=== PATIENT | female | born 1990 | race Two or more races ===

== ENCOUNTER 2023-11-07 06:43 | Outpatient (REF) | payer OTHER, SELFPAY ==
--- NOTE | ~2023-11-07 | US_ITS ---
EXAMINATION: US PELVIS CLINICAL INFORMATION: Fibroid. Pain COMPARISON: None available. TECHNIQUE: Ultrasound of the pelvis is performed using both transabdominal and transvaginal transducers along with Doppler. Transvaginal imaging is performed due to inadequate visualization transabdominally. FINDINGS: Uterus: The uterus is anteverted and measures 7.0 x 4.2 x 4.5 cm. The double wall endometrial thickness is 10 mm. The uterus is smooth in contour and has normal myometrial echogenicity. There is one small posterior well defined hypoechoic structure at 12 x 12 x 12 mm which has the appearance of a small fibroid. Adnexa: Both ovaries are visualized. There is normal color flow to the adnexa. There is no ovarian torsion. There is no pelvic ascites or fluid collection. Right ovary measures 3.0 x 3.6 x 3.1 cm. Small peripheral follicles are seen in the right ovary. Left ovary measures 2.4 x 2.7 x 2.6 cm. US/US pelvic and transvaginal IMPRESSION: Small posterior fibroid. Electronically signed by: Go Garcia MD 11/07/2023 02:18 PM EDT
== END 2023-11-07 06:44 | disposition home or self-care (01) ==
LOC: HO.UMASIMG 06:43
PROVIDERS: Visit Provider Family Medicine
DX: D25.9 Leiomyoma of uterus, unspecified (principal)
CPT/HCPCS: 76830; 76856

== ENCOUNTER 2024-07-30 06:27 | Outpatient (REF) | payer OTHER, SELFPAY ==
--- NOTE | ~2024-07-30 | US_ITS ---
CLINICAL HISTORY: LOCALIZED SWELLING US Neck Comparison: None Findings: Targeted ultrasound imaging of the left posterolateral neck in the region of palpable concern demonstrates a normal-sized 0.9 x 0.2 x 0.7 cm lymph node. 0.5 x 0.5 x 0.2 cm normal-sized right posterolateral neck lymph node is also noted. Impression: Normal-sized subcentimeter bilateral posterolateral neck lymph nodes. This document has been electronically signed by: Uri Torres on 07/31/2024 08:09:01
--- OUTSIDE RECORDS SUMMARY | 2024-07-30 06:30 | XMS_ITS | Clinical Summary ---
Author Organization [facility] Address [address] [place] [address] Care Team Providers Care Spring Clipper Name Role Phone Sepideh Silverman MD Primary Care Provider [phone] Allergies No known active allergies Medications Cyanocobalamin (Vitamin B 12) 100 MCG Lozenge Acti ve cholecalciferol (CHOLECALCIFEROL ) 25 MCG (1000 UT) tablet Take 1 tablet (1,000 Units total) by mouth. 01/03/2020 Active Multiple Vitamins-Mineral s (Multi-Vitamin Gummies) Chew Tab Active Active Problems No known active problems Social History Tobacco Use Types Packs/Day Years Used Date Smoking Tobacco: Never Cigarettes Smokeless Tobacco: Never Tobacco Cessation:Counseling Given: Not Answered Alcohol Use Standard Drinks/Week Comments Not Currently 0 (1 standard drink = 0.6 oz pur e alcohol) Comments Unknown Sex and Gender Information Value Date Recorded Sex Assigned at Not on file Legal Sex Female 2:06 PM EST Gender Identity Female 03/30/2020 8:21 AM EST Sexual Orientation Heterosexual (straight) 03/30 8:21 AM EST Last Filed Vital Signs Vital Sign Reading Time Taken Comments Blood Pressure 126/78 01/15/2022 1:16 PM EST Pulse 89 01/15/2022 1:16 PM EST Temperature 36.8 ??C (98.2 ??F) 01/15/2022 1:16 PM ES T Respiratory Rate 20 01/15/2022 1:16 PM EST Oxygen Saturation 100% 01/15/2022 1:16 PM EST Inhaled Oxygen Concentration - - Weight 56.2 kg (124 lb) 08/05/2020 11:46 AM EDT Height 162.6 cm (5' 4 ) 08/05/2020 11:46 AM EDT Body Mass Index 21.28 08/05/2020 11:46 AM EDT Plan of Treatment Health Maintenance Due Date Last Done Comments Hepatitis C Virus Screening 1989 HIV Screening 2002 DTaP/Tdap/Td Vaccines (1 - Tdap) 2008 Hepatitis B Vaccines (1 of 3 - 19+ 3-dose series) 2008 Pap Smear (Ages 21-65) 2010 COVID-19 Vaccine (2023-2 5 season) 2023 11/13/2021, 06/23/2020, 05/26/2020 Influenza Vaccine 09/20/2024 12/05/2019, 11/21/2019 HPV Vaccines Aged Out No longer eligi ble based on patient's age to complete this topic Pneumococcal Vaccine: Pediatric (0-5 Years) and At-Risk Patients (6 to 49 Years) Aged Out No longer eligible b ased on patient's age to complete this [place] [address] [facility] [employer] [facility] Subscriber Plan / Payer (Ef fective 2019-Present) Name:Latrice VashtiSarah feliciano Relation to Subscriber:Self Name:Latrice VashtiSarah feliciano Payer ID:Not on file Type:Not on file Address: [facility] [id number] [place] [id number] [facility] Care Teams Spring Clipper Relationship Specialty Start Date End Date Sepideh Silverman MD [address] [place] [address] PCP - General Family Medicine 01/15/22
== END 2024-07-30 06:28 | disposition home or self-care (01) ==
LOC: HO.UMASIMG 06:27
PROVIDERS: Visit Provider Internal Medicine
DX: R22.1 Localized swelling, mass and lump, neck (principal)
CPT/HCPCS: 76536

== ENCOUNTER → 2024-07-30 10:30 | Outpatient (BNV) | payer OTHER, SELFPAY | PROVIDERS: Visit Provider Radiology Vascular & Interventional Radiology | DX: R22.1 Localized swelling, mass and lump, neck (principal) | CPT/HCPCS: 76536 ==

== ENCOUNTER 2024-10-15 06:24 | Outpatient (REF) | payer OTHER, SELFPAY ==
--- NOTE | ~2024-10-15 | US_ITS ---
EXAMINATION: US EXTREMITY, NONVASCULAR CLINICAL INFORMATION: Skin thickening, left mid foster. COMPARISON: None available. TECHNIQUE: Real-time ultrasound using linear transducer with grayscale and color Doppler technique in the region of concern. Limited exam. FINDINGS: No gross solid or cystic lesion. No gross fluid collections. US/US Extremity Nonvas Limited LT IMPRESSION: Negative exam. Electronically signed by: Yo Balderas MD 10/15/2024 02:19 PM EDT
--- OUTSIDE RECORDS SUMMARY | 2024-10-15 06:29 | XMS_ITS | Encounter Summary ---
Author Organization [facility] Address [address] [place] [address] Care Team Providers Care Crtt Name Role Phone Darek Bagley MD Primary Care Provider [phone] Reason for Visit * Reason Onset Date Comments Medication Refill 04/02/2022 Encounter Details Date Type Department Care Team (Late st Contact Info) Description 04/02/2022 Refill [facility] CL[facility] [address] [place] [address] Bonnie Forrester MD [address] [place] [address] Medication Refill Social History Tobacco Use Types Packs/Day Years Used Date Smoking Tobacco: Never Smokeless Tobacco: Never Alcohol Use Standard Drinks/Week Comments Yes 0 (1 standard drink = 0.6 oz pur e alcohol) social PHQ-2 Answer Date Recorded PHQ-2 Total Score 0 07/14/2020 Comments No Sex and Gender Information Value Date Recorded Sex Assigned at Female 03/14/2020 3:49 PM EST Legal Sex Female 2:59 PM EDT Gender Identity Female 03/14/2020 3:49 PM EST Sexual Orientation Straight 03/14/2020 3: 49 PM EST documented as of this encounter Plan of Treatment Not on file documented as of this encounter Visit Diagnoses Diagnosis Abnormal uterine bleeding (AUB) documented in this encounter Additional Health Concerns Assessment Noted Time PHQ-9 Depression Total Score: 0 07/15/19 21 9:29 AM EDT documented as of this encounter Care Teams Crtt Relationship Specialty Start Date End Date Darek Bagley MD [address] [place] [address] PCP - General Family Medicine 01/31/20 documented as of this encounter
--- OUTSIDE RECORDS SUMMARY | 2024-10-15 06:29 | XMS_ITS | Encounter Summary ---
Author Organization [facility] Address [address] [place] [address] Care Team Providers Care Presentation Designer Name Role Phone Darek Bagely MD Primary Care Provider [phone] Sepideh Silverman MD Primary Care Provider [phone] Encounter Details Date Type Department Care Team (Late st Contact Info) Description 04/14/2020 Telephone [facility] [employer] [address] [address] Shailesh Downing MD [address] [place] [address] [address] [place] [address] Social History Tobacco Use Types Packs/Day Years Used Date Smoking Tobacco: Never Cigarettes Smokeless Tobacco: Never Alcohol Use Standard Drinks/Week Comments Not Currently 0 (1 standard drink = 0.6 oz pur e alcohol) Comments Unknown Sex and Gender Information Value Date Recorded Sex Assigned at Not on file Legal Sex Female 2:06 PM EST Gender Identity Female 03/30/2020 8:21 AM EST Sexual Orientation Heterosexual (straight) 03/30 8:21 AM EST COVID-19 Exposure Response Date Recorded In the last month, have you been in contact with someone who was confirmed or suspected to have Coronavirus / COVID-19? No / Unsure 04/14/2020 7:48 AM EST documented as of this encounter Plan of Treatment Not on file documented as of this encounter Visit Diagnoses Not on filedocumented in this encounter Care Teams Presentation Designer Relationship Specialty Start Date End Date Darek Bagley MD [address] [place] [address] PCP - General Pediatric, General 01/23/20 01/14/22 Sepideh Silverman MD [address] [place] [address] PCP - General Family Medicine 01/15/22 documented as of this encounter
--- OUTSIDE RECORDS SUMMARY | 2024-10-15 06:29 | XMS_ITS | Encounter Summary ---
Author Organization [address] [address] Care Team Providers Care Vehicle Body Sander Name Role Phone Darek Bagley MD Primary Care Provider [phone] Sepideh Silverman MD Primary Care Provider [phone] Encounter Details Date Type Department Care Team ([facility] Contact Info) Description 01/27/2020 Scanned Document [facility] Neurosurgery [address] [place] [phone] Rylan Arroyo MD Social History Tobacco Use Types Packs/Day Years [...] have Coronavirus / COVID-19? No / Unsure 01/27/2020 1:16 PM EST documented as of this encounter Functional Status documented as of this encounter Plan of Treatment Not on file documented as of this encounter Visit Diagnoses Not on filedocumented in this encounter Care Teams Vehicle Body Sander Relationship Specialty Start Date End Date Darek Bagley MD [address] [place] [address] PCP - General Pediatric, General 01/23/20 01/14/22 Sepideh Silverman MD [address] [place] [address] PCP - General Family Medicine 01/15/22 documented as of this encounter
--- OUTSIDE RECORDS SUMMARY | 2024-10-15 06:29 | XMS_ITS | Encounter Summary ---
Author Organization [facility] Address [address] [place] [address] Care Team Providers Care Materials Management Supervisor Name Role Phone Darek Bagley MD Primary Care Provider [phone] Reason for Visit * Reason Onset Date Comments Medication Refill 03/29/2022 Encounter Details Date Type Department Care Team (Late st Contact Info) Description 03/29/2022 Refill [facility] SHIELD RUNNER [address] [place] [address] Bonnie Forrester MD [address] [place] [address] Medication Refill Social History Tobacco [...] documented as of this encounter Care Teams Materials Management Supervisor Relationship Specialty Start Date End Date Darek Bagley MD [address] [place] [address] PCP - General Family Medicine 01/31/20 documented as of this encounter
--- OUTSIDE RECORDS SUMMARY | 2024-10-15 06:29 | XMS_ITS | Encounter Summary ---
Author Organization [address] [address] Care Team Providers Care Shell Molder Name Role Phone Darek Bagley MD Primary Care Provider [phone] Sepideh Silverman MD Primary Care Provider [phone] Encounter Details Date Type Department Care Team ([facility] st Contact Info) Description 07/06/2020 Scanned Document [facility] Neurosurgery [address] [place] [phone] Rylan Arroyo MD Social History Tobacco Use [...] Orientation Heterosexual (straight) 03/30 8:21 AM EST documented as of this encounter Plan of Treatment Not on file documented as of this encounter Visit Diagnoses Not on filedocumented in this encounter Care Teams Shell Molder Relationship Specialty Start Date End Date Darek aBgley MD [address] [place] [address] PCP - General Pediatric, General 01/23/20 01/14/22 Sepideh Silverman MD [address] [place] [address] PCP - General Family Medicine 01/15/22 documented as of this encounter
--- OUTSIDE RECORDS SUMMARY | 2024-10-15 06:29 | XMS_ITS | Encounter Summary ---
Author Organization [facility] Address [address] [place] [address] Care Team Providers Care Pinion Sorter Name Role Phone Darek Bagley MD Primary Care Provider [phone] Reason for Referral * Imaging (Routine) - Closed Specialty Diagnoses / Procedures Referred By Liane roberts Referred To Contact Radiology Diagnoses Benign neoplasm of pituitary gland (HCC) Elevated prolactin level Procedures MRI HEAD W AND WO IV CONTRAST Rylan Arroyo MD [address] [place] [address] Phone: tel: fax: [facility] Radiology - Central Scheduling [place] Phone: tel: fax: Referral ID Status Reason Start Date Expiration Date V isits Requested Visits Authorized [id number] Closed Perform Procedure 07/06/2020 07/06/2021 1 1 Encounter Details Date Type Department Care Team (Late st Contact Info) Description 07/06/2020 Ancillary Orders [facility] Radiology - Central Scheduling [place] [phone] Rylan Arroyo MD [address] [place] [address] Benign neoplasm of pituitary gland (CMS/HCC); Elevated prolactin level Social History Tobacco Use Types Packs/Day Years Used Date Smoking Tobacco: Never Smokeless Tobacco: Never Comments No Sex and Gender Information Value Date Recorded Sex Assigned at Not on file Legal Sex Female 2:29 PM EST Gender Identity Not on file Sexual Orientation Not on file COVID-19 Exposure Response Date Recorded In the last month, have you been in contact with someone who was confirmed or suspected to have Coronavirus / COVID-19? No / Unsure 07/06/2020 8:18 AM EDT documented as of this encounter Plan of Treatment Not on file documented as of this encounter Results * MRI HEAD W AND WO IV CONTRAST (07/16/2020 8:42 AM EDT) Anatomical Region Laterality Modality Magnetic Resonan ce 07/16/2020 8:53 AM EDT Impressions 07/16/2020 11:36 AM EDT Stable exam. No significant change in the pituitary gland compared to 01/20/2020. Narrative 07/16/2020 11:36 AM EDT CLINICAL INDICATION: Benign neoplasm of pituitary gland (CMS/HCC), follow up MRI of the brain with and without contrast, PROTOCOL: Multiplanar T1, T2, FLAIR and Dynamic pre and post gadolinium were obtained. CONTRAST: GADOBUTROL 1 MMOL/ML INTRAVENOUS SOLUTION (WRAPPER) 5.5 mL intravenous COMPARISON: MRI brain 01/20/2020. FINDINGS: The pituitary measures 1.0 x 0.8 x 0.9 cm (previously 0.8 x 1.0 x 0.8 cm), with mild bulging of the roof, not significantly changed compared to 01/20/2020. The pituitary is mildly heterogeneously enhancing, without definite discrete focal area of hypoenhancement. This could represent an adenoma replacing the gland versus a prominent gland, and is not significantly changed. There is no restricted diffusion to indicate an acute infarct. There is no evidence of acute intracranial hemorrhage or midline shift. The visualized larger intracranial flow voids are grossly unremarkable. The paranasal sinuses and mastoid air cells are unremarkable. Procedure Note Polo Welch MD - 07/16/2020 CLINICAL INDICATION: Benign neoplasm of pituitary gland (CMS/HCC), followup MRI of the brain with and without contrast, PROTOCOL: Multiplanar T1, T2, FLAIR and Dynamic pre and post gadolinium wereobtained. CONTRAST: GADOBUTROL 1 MMOL/ML INTRAVENOUS SOLUTION (WRAPPER) 5.5 mL intravenous COMPARISON: MRI brain 01/20/2020. FINDINGS: The pituitary measures 1.0 x 0.8 x 0.9 cm (previously 0.8 x 1.0 x 0.8 cm),with mild bulging of the roof, not significantly changed compared to01/20/2020. The pituitary is mildly heterogeneously enhancing, withoutdefinite discrete focal area of hypoenhancement. This could represent anadenoma replacing the gland versus a prominent gland, and is notsignificantly changed. There is no restricted diffusion to indicate an acute infarct. There is no evidence of acute intracranial hemorrhage or midline shift. The visualized larger intracranial flow voids are grossly unremarkable. The paranasal sinuses and mastoid air cells are unremarkable. IMPRESSION: Stable exam. No significant change in the pituitary gland compared to01/20/2020. 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
--- OUTSIDE RECORDS SUMMARY | 2024-10-15 06:29 | XMS_ITS | Encounter Summary ---
Author Organization [facility] Address [address] [place] [address] Care Team Providers Care Telehealth Nurse Educator Name Role Phone Darek Bagley MD Primary Care Provider [phone] Encounter Details Date Type Department Care Team (Late st Contact Info) Description 02/02/2022 Scanned Document [facility] [address] [phone] Karissa Mooney MD [address] [place] [address] Social History Tobacco Use Types Packs/Day Years [...] Diagnoses Not on filedocumented in this encounter Additional Health Concerns Assessment Noted Time PHQ-9 Depression Total Score: 0 07/15/19 21 9:29 AM EDT documented as of this encounter Care Teams Telehealth Nurse Educator Relationship Specialty Start Date End Date Darek Bagley MD [address] [place] [address] PCP - General Family Medicine 01/31/20 documented as of this encounter
--- OUTSIDE RECORDS SUMMARY | 2024-10-15 06:29 | XMS_ITS | Clinical Summary ---
Author Organization [facility] Address [address] [place] [address] Phone Care Team Providers Care Milk Drying Machine Operator Name Role Phone Darek Bagley MD Primary Care Provider [phone] Allergies No known active allergies Medications multivitamin with minerals tablet Take 1 tablet by mouth. Active mecobalamin, vitamin B12, (B12 ACTIVE) 1,000 mcg Chew Take 1 Dose by mouth daily. 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 Visual changes 07/14/2020 Family History Medical History Relation Name Comments Heart disease Father Hypertension Mother Relation Name Status Comments Father Mother Social History Tobacco Use Types Packs/Day Years [...] Orientation Straight 03/14/2020 3: 49 PM EST Last Filed Vital Signs Vital Sign Reading Time Taken Comments Blood Pressure 120/82 02/01/2022 1:38 PM EST Pulse 100 07/14/2020 9:26 AM EDT Temperature 37.4 C (99.3 F) 07/14/2020 9:26 AM EDT Respiratory Rate - - Oxygen Saturation 100% 07/14/2020 9:26 AM EDT Inhaled Oxygen Concentration - - Weight 54.4 kg (120 lb) 02/01/2022 1:38 PM EST Height 162.6 cm (5' 4 ) 02/01/2022 1:38 PM EST Body Mass Index 20.6 02/01/2022 1:38 PM EST Plan of Treatment Health Maintenance Due Date Last Done Comments HIV screening 2002 Tetanus adult (Td q 10,TDAP once) 2009 Cervical cancer screening 2010 Covid-19 vaccine series ( season) 2023 11/13/2021, 06/23/2020, 05/26/2020 Influenza vaccine 10/21/2024 11/21/2019 RSV Immunization (1 - 1-dose 75+ series) 2064 Hepatitis C screening Completed 07/14/2020 , 07/14/2020, 03/24/2020, Additional history exists Meningococcal B Vaccine Aged Out No l onger eligible based on patient's age to complete this topic Meningococcal Vaccine Aged Out No salo luzmaria eligible based on patient's age to complete this topic Pneumococcal Vaccine (2 - 49 years) Aged Out No longer eligible based on patient's age to complete this topic Insurance [facility] Care Teams Milk Drying Machine Operator Relationship Specialty Start Date End Date Darek Bagley MD [address] [place] [id number] PCP - General Family Medicine 01/31/20
--- OUTSIDE RECORDS SUMMARY | 2024-10-15 06:29 | XMS_ITS | Encounter Summary ---
Author Organization [facility] Address [address] [place] [address] Phone Care Team Providers Care Still Cleaner Name Role Phone Sepideh Silverman MD Primary Care Provider [phone] Encounter Details Date Type Department Care Team (Late Contact Info) Description 11/19/2020 Transcribe Orders Virtual Department [address] [place] [address] Sepideh Silverman MD [address] [place] [phone] [email or web address] Menorrhagia with regular cycle (Primary Dx) Social History Tobacco Use Types Packs/Day Years Used Date Smoking Tobacco: Never Assessed Comments Unknown Sex and Gender Information Value Date Recorded Sex Assigned at Female 04/09/2021 11:28 AM EST Legal Sex Female 1:54 PM EDT Gender Identity Female 04/09/2021 11:28 AM EST Sexual Orientation Straight 04/09/2021 11 :28 AM EST documented as of this encounter Plan of Treatment Upcoming Encounters Date Type Department Care Team (Late Contact Info) Description 10/29/2024 11:00 AM EDT [facility] [address] [place], [place] [phone] Danita iVdes MD [address] [phone] documented as of this encounter Results * US PELVIS TRANSABDOMINAL PLUS TRANSVAGINAL (11/27/2020 4:09 PM EDT) Anatomical Region Laterality Modality Pelvis, Uterus/Adnexa Ultrasound 11/27/2020 4:35 PM EDT Impressions 11/27/2020 4:38 PM EDT Small endometrial lesion measuring 0.5 x 0.6 x 0.6 cm could represent small polyp or submucosal leiomyoma. Narrative 11/27/2020 4:38 PM EDT EXAM: US PELVIS TRANSABDOMINAL PLUS TRANSVAGINAL COMPARISON: None HISTORY: Menorrhagia FINDINGS: UTERUS: The uterus is anteflexed, measures 8.1 cm x 3.2 cm x 4.5 cm, volume of 60.5 cm3, and demonstrates homogeneous myometrial echotexture. The endometrial echocomplex measures 0.6 cm in thickness. Small hypoechoic lesion measuring 0.5 x 0.6 x 0.6 cm interrupts the posterior wall of the endometrium. RIGHT OVARY: 3.2 cm x 2.3 cm x 2.3 cm, volume of 9.1 cm3. Normal follicular appearance. Arterial and venous flow is demonstrated with color and spectral Doppler.. LEFT OVARY: 3.1 cm x 2.0 cm x 3.1 cm, volume of 10.1 cm3. Normal follicular appearance. Arterial and venous flow is demonstrated with color and spectral Doppler.. PELVIS: No free fluid. Procedure Note Merlene Arellano MD - 11/27/2020 EXAM: US PELVIS TRANSABDOMINAL PLUS TRANSVAGINAL COMPARISON: None HISTORY: Menorrhagia FINDINGS: UTERUS: The uterus is anteflexed, measures 8.1 cm x 3.2 cm x 4.5 cm,volume of 60.5 cm3, and demonstrates homogeneous myometrial echotexture.The endometrial echocomplex measures 0.6 cm in thickness. Small hypoechoiclesion measuring 0.5 x 0.6 x 0.6 cm interrupts the posterior wall of theendometrium. RIGHT OVARY: 3.2 cm x 2.3 cm x 2.3 cm, volume of 9.1 cm3. Normalfollicular appearance. Arterial and venous flow is demonstrated with colorand spectral Doppler.. LEFT OVARY: 3.1 cm x 2.0 cm x 3.1 cm, volume of 10.1 cm3. Normalfollicular appearance. Arterial and venous flow is demonstrated with colorand spectral Doppler.. PELVIS: No free fluid. IMPRESSION: Small endometrial lesion measuring 0.5 x 0.6 x 0.6 cm could representsmall polyp or submucosal leiomyoma. us Sepideh Silverman MD IMG US PELVIS Final Result documented in this encounter Visit Diagnoses Diagnosis Menorrhagia with regular cycle- Primary Menorrhagia with regular cycle documented in this encounter Care Teams Still Cleaner Relationship Specialty Start Date End Date Sepideh Silverman MD [address] [place] [phone] [email or web address] PCP - General Family Medicine 11/24/20 documented as of this encounter Additional Source Comments The information contained in this document represents components of the legal health record. It is not the complete legal health record.[facility]
--- OUTSIDE RECORDS SUMMARY | 2024-10-15 06:29 | XMS_ITS | Clinical Summary ---
Author Organization [facility] Address [address] [place] [address] Care Team Providers Care Consumer Marketing Analyst Name Role Phone Sepideh Silverman MD Primary Care Provider [phone] Allergies No known active allergies Medications Cyanocobalamin [...] 89 01/15/2022 1:16 PM EST Temperature 36.8 C (98.2 F) 01/15/2022 1:16 PM EST Respiratory Rate 20 01/15/2022 1:16 PM EST [...] series) 2008 Pap Smear (Ages 21-65) 2010 HPV Vaccines (1 - 3-dose SCD M series) 2016 COVID-19 Vaccine (4 - 2023-2 5 season) 2023 11/13/2021, 06/23/2020, 05/26/2020 Influenza Vaccine 09/20/2024 12/05/2019, 11/21/2019 Pneumococcal Vaccine: Pediatric (0-5 Years) and At-Risk Patients (6 to 49 Years) Aged Out No longer eligible b ased on patient's age to complete this topic Insurance [facility] Care Teams Consumer Marketing Analyst Relationship Specialty Start Date End Date Sepideh Silverman MD [address] [place] [address] PCP - General Family Medicine 01/15/22
--- OUTSIDE RECORDS SUMMARY | 2024-10-15 06:29 | XMS_ITS | Encounter Summary ---
Author Organization [employer] [facility] Address [address] [place] [address] Care Team Providers Care Filling Hauler Name Role Phone Darek Bagley MD Primary Care Provider [phone] Encounter Details Date Type Department Care Team ([facility] st Contact Info) Description 07/06/2020 Procedure Pass [facility] Radiology, Outpatient Center (MRI) 534 [facility], [address] [place] [address] Social History Tobacco Use Types Packs/Day Years [...] filedocumented in this encounter Additional Health Concerns Infection Onset Date Last Indicated Resolved Time COVID-19 (rule out) 08/30/2020 08/30/2020 09/01/19 21 12:17 PM EDT documented as of this encounter Care Teams Filling Hauler Relationship Specialty Start Date End Date Darek Bagley MD [address] [place] [address] PCP - General Pediatrics 10/03/19 documented as of this encounter
--- OUTSIDE RECORDS SUMMARY | 2024-10-15 06:29 | XMS_ITS | Encounter Summary ---
Author Organization [facility] Address [address] [place] [address] Phone Care Team Providers Care Health Consultant Name Role Phone Sepideh Silverman MD Primary Care Provider [phone] Encounter Details Date Type Department Care Team (Late Contact Info) Description 04/05/2022 Transcribe Orders Virtual Department [address] [place] [address] Sepideh Silverman MD [address] [place] [address] [email or web address] Localized swelling, mass and lump, neck (Primary Dx) Social History Tobacco Use Types Packs/Day Years Used Date Smoking Tobacco: Never Smokeless Tobacco: Never Alcohol Use Standard Drinks/Week Comments Yes 0 (1 standard drink = 0.6 oz pur e alcohol) 1-3 monthly Comments No Sex and Gender Information Value [...] [facility] [address] [place], [place] [id number] Danita Vides MD [address] [address] documented as of this encounter Results * US Soft Tissues of Head and Neck (Non-Thyroid) (05/11/2022 3:19 PM EDT) Anatomical Region Laterality Modality Neck, Head Ultrasound 05/12/2022 11:1 8 AM EDT Impressions 05/12/2022 7:31 PM EDT FINDINGS/IMPRESSION: Superficial scanning was performed of the palpable mass in the left cervical region as localized by the patient, demonstrating an 8 x 5 x 2 mm hypoechoic structure that is almost certainly benign, likely a normal lymph node. Narrative 05/12/2022 7:31 PM EDT US SOFT TISSUES OF HEAD AND NECK (NON-THYROID) TECHNIQUE: Superficial Ultrasound COMPARISON: None Procedure Note Gorge Villalba MD - 05/12/2022 US SOFT TISSUES OF HEAD AND NECK (NON-THYROID) TECHNIQUE: Superficial Ultrasound COMPARISON: None IMPRESSION: FINDINGS/IMPRESSION: Superficial scanning was performed of the palpable mass in the leftcervical region as localized by the patient, demonstrating an 8 x 5 x 2 mmhypoechoic structure that is almost certainly benign, likely a normallymph node. us Sepideh Silverman MD IMG US HEAD/NECK NON THYROID Fi nal Result documented in this encounter Visit Diagnoses Diagnosis Localized swelling, mass and lump, neck- Primary Swelling, mass, or lump in head and neck Localized swelling, mass and lump, neck Swelling, mass, or lump in head and neck documented in this encounter Care Teams Health Consultant Relationship Specialty Start Date End Date Sepideh Silverman MD [address] [place] [address] PCP - General Family Medicine 11/24/20 documented as of this encounter Additional Source Comments The information contained in this document represents components of the legal health record. It is not the complete legal health record.[facility]
--- OUTSIDE RECORDS SUMMARY | 2024-10-15 06:29 | XMS_ITS | Encounter Summary ---
Author Organization [facility] Address [address] [place] [address] Phone Care Team Providers Care Bottle And Glass Inspector Name Role Phone Sepideh Silverman MD Primary Care Provider [phone] Encounter Details Date Type Department Care Team (Late Contact Info) Description 05/06/2022 Procedure Pass [facility] PERIOPERATIVE DEPT [address] [place] [address] Social History Tobacco Use Types Packs/Day Years Used Date Smoking Tobacco: Never Smokeless Tobacco: Never Alcohol Use Standard Drinks/Week Comments Not Currently 0 (1 standard drink = 0.6 oz pur e alcohol) Intimate Partner Violence Answer Date R ecorded Are you denied basic needs s uch as food, clothing, or medical care? No 05/06/2022 In the past 12 months have y ou been in a relationship with a person who hurts, threatens, or tries to control you? No 05/06/2022 Are you denied basic needs s uch as food, clothing, or medical care? No 05/06/2022 In the past 12 months have y ou been in a relationship with a person who hurts, threatens, or tries to control you? No 05/06/2022 Comments No Sex and Gender Information Value Date Recorded Sex Assigned at Female 04/09/2021 11:28 AM EST Legal Sex Female 1:54 PM EDT Gender Identity Female 04/09/2021 11:28 AM EST Sexual Orientation Straight 04/09/2021 11 :28 AM EST documented as of this encounter Plan of Treatment Upcoming Encounters Date Type Department Care Team (Late st Contact Info) Description 10/29/2024 11:00 AM EDT Office Visit [facility] [address] [place] [address] Danita Vides MD [address] [address] [email or web address] documented as of this encounter Visit Diagnoses Not on filedocumented in this encounter Care Teams Bottle And Glass Inspector Relationship Specialty Start Date End Date Sepideh Silverman MD [address] [place] [address] [email or web address] PCP - General Family Medicine 11/24/20 documented as of this encounter Additional Source Comments The information contained in this document represents components of the legal health record. It is not the complete legal health record.[facility]
--- OUTSIDE RECORDS SUMMARY | 2024-10-15 06:29 | XMS_ITS | Encounter Summary ---
Author Organization [facility] Address [address] [place] [address] Care Team Providers Care Airport Shuttle Driver Name Role Phone Darek Bagley MD Primary Care Provider [phone] Sepideh Silverman MD Primary Care Provider [phone] Encounter Details Date Type Department Care Team (Late st Contact Info) Description 03/23/2020 Scanned Document [facility] OPTHALMOLOGY SCAN Ophthalmology, Scan Social History Tobacco Use Types Packs/Day Years [...] on filedocumented in this encounter Care Teams Airport Shuttle Driver Relationship Specialty Start Date End Date Darek Bagley MD [address] [place] [address] PCP - General Pediatric, General 01/23/20 01/14/22 Sepideh Silverman MD [address] [place] [address] PCP - General Family Medicine 01/15/22 documented as of this encounter
--- OUTSIDE RECORDS SUMMARY | 2024-10-15 06:30 | XMS_ITS | Clinical Summary ---
Author Organization [facility] Address [address] [address] Phone Care Team Providers Care Business Process Analyst Name Role Phone Sepideh Silverman MD Primary Care Provider [phone] Allergies No known active allergies Medications mecobalamin, vitamin B12, 1,000 mcg Chew Take by mouth. Active ferrous sulfate 324 mg (65 mg lumbee iron) TbEC Take 324 mg by mouth 2 (two) times a day with meals. Active ascorbic acid, vitamin C, (VITAMIN C) 250 MG tablet Take 250 mg by mouth 2 (two) times a day. Active ibuprofen (ADVIL,MOTRIN) 200 MG tablet Take 200 mg by mouth every 6 (six) hours as needed for pain (specific location in comments). Active multivitamin Liqd Take 5 mL by mouth daily. Active Active Problems Problem Noted Date Diagnosed Date SUDHIR positive 07/14/2020 Anxiety 03/10/2020 Family History Medical History Relation Comments Breast cancer Neg Hx Colon cancer Neg Hx Ovarian cancer Neg Hx Relation Status Comments Brother Alive Father Alive Maternal Grandfather Maternal Grandmother Mother Alive Paternal Grandfather Paternal Grandmother Sister Alive Social History Tobacco Use Types Packs/Day Years Used Date Smoking Tobacco: Never Smokeless Tobacco: Never Alcohol Use Standard Drinks/Week Comments Not Currently 0 (1 standard drink = 0.6 oz pur e alcohol) Education Answer Date Recorded Are you interested in more education? Not on daylin e 06/18/2022 Are you concerned about learning? Not on file 06/18/2022 No 06/18/2022 No 06/18/2022 Digital Access Answer Date Recorded No 07/17/2022 No 07/17/2022 No 07/17/2022 Reliable internet access at home? Not on file 07/17/2022 Device with a working camera? Not on file Intimate Partner Violence Answer Date R ecorded [...] Orientation Straight 04/09/2021 11 :28 AM EST Last Filed Vital Signs Vital Sign Reading Time Taken Comments Blood Pressure 119/69 05/06/2022 12:[address] amb vs Pulse 84 05/06/2022 12:59 PM EDT Temperature 36.7 C (98.1 F) 05/06/2022 12:24 PM EDT Respiratory Rate 18 05/06/2022 12:59 PM EDT Oxygen Saturation 100% 05/06/2022 12:59 PM EDT Inhaled Oxygen Concentration - - Weight 55.8 kg (123 lb) 05/03/2022 3:17 PM EDT Height 158.8 cm (5' 2.5 ) 05/03/2022 3:17 PM EDT Body Mass Index 22.14 05/03/2022 3:17 PM EDT Plan of Treatment Upcoming Encounters Date Type Department Care Team (Late st Contact Info) Description 10/29/2024 11:00 AM EDT [facility] Visit [facility] [address] [place] [address] Danita Vides MD [address] [address] [email or web address] Health Maintenance Due Date Last Done Comments DEPRESSION SCREENING 2001 HEPATITIS C SCREENING 05/06/2007 HIV ONE-TIME SCREENING (18-6 5 YEARS) 05/06/2007 PAP SMEAR 2010 COVID-19 VACCINE (2023-2 5 season) 2023 06/23/2020, 05/26/2020 Adult Td,Tdap Booster 12/16/2030 12/16/2020 SMOKING STATUS SCREENING (On ce After 26 Yrs) Completed 04/29/2022 HEPATITIS A VACCINES Aged Out No long er eligible based on patient's age to complete this topic HIB VACCINES Aged Out No longer eligi ble based on patient's age to complete this topic MENINGOCOCCAL VACCINES (ACWY) Aged Out No longer eligible based on patient's age to complete this topic MENINGOCOCCAL VACCINES (B) Aged Out N o longer eligible based on patient's age to complete this topic PNEUMOCOCCAL VACCINES (0-49 years) Aged Out No longer eligible b ased on patient's age to complete this topic Medical Devices Not on file Insurance [facility] SAFETY NET PARTIAL [employer]AL [facility] SAFETY NET PARTIAL Member Subscriber Plan / Payer (Ef fective 2021-Present) Name:Latrice Vashti Chongkaran Relation to Subscriber:Self Name:Latrice Kingston Chongkaran Payer ID:Not on file Group ID:Not on file Type:Medicaid Address: [address] [facility] NET PARTIAL HEALTH SAFETY NET PARTIAL [facility] NET PARTIAL Member Subscriber Plan / Payer (Ef fective 2021-Present) Name:Sarah Valente Relation to Subscriber:Self Name:Sarah Valente Payer ID:Not on file Group ID:Not on file Type:Medicaid [address] NET PARTIAL HEALTH SAFETY NET PARTIAL [facility] NET PARTIAL Member Subscriber Plan / Payer (Ef fective 2021-Present) Name:Sarah Valente Relation to Subscriber:Self Name:Sarah Valente Payer ID:Not on file Group ID:Not on file Type:Medicaid [address] [facility] PARTIAL Member Subscriber Plan / Payer (Ef fective 2021-Present) Name:Sarah Valente Relation to Subscriber:Self Name:Sarah Valente Payer ID:Not on file Group ID:Not on file Type:Medicaid [address] [place] Care Teams Business Process Analyst Relationship Specialty Start Date End Date Sepideh Silverman MD [address] [place] [address] [email or web address] PCP - General Family Medicine 11/24/20 Additional Source Comments The information contained in this document represents components of the legal health record. It is not the complete legal health record.[facility]
--- OUTSIDE RECORDS SUMMARY | 2024-10-15 06:30 | XMS_ITS | Encounter Summary ---
Author Organization [employer] Address [address] [place] [address] Care Team Providers Care Elevator Constructor Hydraulic Name Role Phone Darek Bagley MD Primary Care Provider [phone] Reason for Referral * Imaging (Routine) - Closed Specialty Diagnoses / Procedures Referred By Liane roberts Referred To Contact Radiology Diagnoses Pituitary adenoma (HCC) Procedures MRI PITUITARY W AND WO IV CONTRAST MRI HEAD W AND WO IV CONTRAST Darek Bagley MD [address] [place] [address] Phone: tel: fax: [facility] Radiology - Central Scheduling [place] Phone: tel: fax: Referral ID Status Reason Start Date Expiration Date V isits Requested Visits Authorized [id number] Closed Perform Procedure 01/08/2020 01/07/2021 1 1 Encounter Details Date Type Department Care Team (Late st Contact Info) Description 01/08/2020 Ancillary Orders [facility] Radiology - Central Scheduling [place] [phone] Darek Bagley MD [address] [place] [address] Pituitary adenoma (CMS/HCC) Social History Tobacco Use Types Packs/Day Years [...] have Coronavirus / COVID-19? No / Unsure 01/08/2020 9:20 AM EST documented as of this encounter Plan of Treatment Not on file documented as of this encounter Results * MRI PITUITARY W AND WO IV CONTRAST (01/20/2020 9:00 AM EST) Anatomical Region Laterality Modality Magnetic Resonan ce 01/21/2020 8:21 AM EST Impressions 01/21/2020 8:46 AM EST Consistent with pituitary microadenoma mid to anterior. Narrative 01/21/2020 8:46 AM EST CLINICAL INDICATION: H/O adenoma with recurent increase Prolactin///pt states HOLLIDAY's w/ nausea and vomiting during menstrual cycle which is sparse-Increased Prolactin, PROTOCOL: Multiplanar T1, T2, FLAIR, and Dynamic pre and post gadolinium images were obtained. CONTRAST: SODIUM CHLORIDE 0.9 % IV FLUSH (BAG) 60 mL intravenous GADOBUTROL 1 MMOL/ML INTRAVENOUS SOLUTION (WRAPPER) 5.4 mL intravenous COMPARISON: None. FINDINGS: Ventricles normal in size and configuration. Corcoran-white matter differentiation preserved. No evidence of acute intracranial mass, abnormal enhancement or acute diffusion abnormality in the [id number]. Intermediate to low T1 and T2 signal intensity nodule replacing most of the anterior pituitary 8 x 10 x 8 mm mildly heterogeneous in signal and enhancement, without restricted diffusion with mild anterior and left deviation of the pituitary stalk and mild thickening of the stalk although without focal lesion within the stalk otherwise identified. Splaying of the normal appearing pituitary peripherally with mild bulging of the roof. Procedure Note Thomas Gordon MD - 01/21/2020 CLINICAL INDICATION: H/O adenoma with recurent increase Prolactin///ptstates HOLLIDAY's w/ nausea and vomiting during menstrual cycle which issparse-Increased Prolactin, PROTOCOL: Multiplanar T1, T2, FLAIR, and Dynamic pre and post gadolinium images wereobtained. CONTRAST: SODIUM CHLORIDE 0.9 % IV FLUSH (BAG) 60 mL intravenous GADOBUTROL 1 MMOL/ML INTRAVENOUS SOLUTION (WRAPPER) 5.4 mL intravenous COMPARISON: None. FINDINGS: Ventricles normal in size and configuration. Corcoran-white matter differentiation preserved. No evidence of acute intracranial mass, abnormal enhancement or acutediffusion abnormality in the iqcfh-[id number]. Intermediate to low T1 and T2 signal intensity nodule replacing most ofthe anterior pituitary 8 x 10 x 8 mm mildly heterogeneous in signal andenhancement, without restricted diffusion with mild anterior and leftdeviation of the pituitary stalk and mild thickening of the stalk althoughwithout focal lesion within the stalk otherwise identified. Splaying of the normal appearing pituitary peripherally with mild bulgingof the roof. IMPRESSION: Consistent with pituitary microadenoma mid to anterior. Darek Bagley MD IM MRI PROCEDURES Final Resu lt documented in this encounter Visit Diagnoses Diagnosis Pituitary adenoma (HCC) Benign neoplasm of pituitary gland and craniopharyngeal duct (pouch) Pituitary adenoma (HCC) Benign neoplasm of pituitary gland and craniopharyngeal duct (pouch) documented in this encounter Additional Health Concerns Infection Onset Date Last Indicated Resolved Time COVID-19 (rule out) 08/30/2020 08/30/2020 09/01/19 21 12:17 PM EDT documented as of this encounter Care Teams Elevator Constructor Hydraulic Relationship Specialty Start Date End Date Darek Bagley MD [address] [place] [address] PCP - General Pediatrics 10/03/19 documented as of this encounter
--- OUTSIDE RECORDS SUMMARY | 2024-10-15 06:30 | XMS_ITS | Encounter Summary ---
Author Organization [employer] [facility] Address [address] [place] [address] Care Team Providers Care Bonsai Tender Name Role Phone Darek Bagley MD Primary Care Provider [phone] Encounter Details Date Type Department Care Team ([facility] Contact Info) Description 01/08/2020 Procedure Pass [facility] Radiology, Outpatient Center (MRI) 534 [facility], [address] [place] [address] Social History Tobacco Use Types Packs/Day Years [...] documented as of this encounter Care Teams Bonsai Tender Relationship Specialty Start Date End Date Darek Bagley MD [address] [place] [address] PCP - General Pediatrics 10/03/19 documented as of this encounter
--- OUTSIDE RECORDS SUMMARY | 2024-10-15 06:30 | XMS_ITS | Encounter Summary ---
Author Organization [employer] [facility] Address [address] [place] [address] Care Team Providers Care Cathode Maker Name Role Phone Darek Bgaley MD Primary Care Provider [phone] Encounter Details Date Type Department Care Team ([facility] Contact Info) Description 01/08/2020 Scanned Document Business Office [address] [place] [address] Darek Bagley MD [address] [place] [phone] Social History Tobacco Use Types Packs/Day Years [...] documented as of this encounter Care Teams Cathode Maker Relationship Specialty Start Date End Date Darek Bagley MD [address] [place] [address] PCP - General Pediatrics 10/03/19 documented as of this encounter
--- OUTSIDE RECORDS SUMMARY | 2024-10-15 06:30 | XMS_ITS | Encounter Summary ---
Author Organization [employer] Address [address] [place] [address] Care Team Providers Care Floor Scraper Name Role Phone Darek Bagley MD Primary Care Provider Encounter Details Date Type Department Care Team (Late st Contact Info) Description 01/03/2020 Ancillary Orders [facility] Radiology - Central Scheduling [place] [phone] Darek Bagley MD [address] [place] [address] Social History Tobacco Use Types Packs/Day Years Used Date Smoking Tobacco: Never Assessed Comments Unknown Sex and Gender Information Value Date Recorded Sex Assigned at Not on file Legal Sex Female 2:29 PM EST Gender Identity Not on file Sexual Orientation Not on file documented as of this encounter Plan of Treatment Not on file documented as of this encounter Visit Diagnoses Not on filedocumented in this encounter Additional Health Concerns Infection Onset Date Last Indicated Resolved Time COVID-19 (rule out) 08/30/2020 08/30/2020 09/01/19 21 12:17 PM EDT documented as of this encounter Care Teams Floor Scraper Relationship Specialty Start Date End Date Darek Bagley MD [address] [place] [address] PCP - General Pediatrics 10/03/19 documented as of this encounter
--- OUTSIDE RECORDS SUMMARY | 2024-10-15 06:30 | XMS_ITS | Encounter Summary ---
Author Organization [employer] Address [address] [place] [address] Care Team Providers Care Bin Operator Name Role Phone Darek Bagley MD Primary Care Provider [phone] Encounter Details Date Type Department Care Team (Late st Contact Info) Description 01/03/2020 Ancillary Orders [facility] Radiology - Central Scheduling [place] [phone] Darek Bagley MD [address] [place] [address] Social History Tobacco Use Types Packs/Day Years [...] documented as of this encounter Care Teams Bin Operator Relationship Specialty Start Date End Date Darek Bagley MD [address] [place] [address] PCP - General Pediatrics 10/03/19 documented as of this encounter
--- OUTSIDE RECORDS SUMMARY | 2024-10-15 06:30 | XMS_ITS | Encounter Summary ---
Author Organization [facility] [employer] [facility] Address [address] [place] [phone] Care Team Providers Care Porcelain Mixer Name Role Phone Darek Bagley MD Primary Care Provider [phone] Encounter Details Date Type Department Care Team ([facility] st Contact Info) Description 07/01/2020 Scanned Document [facility] [address] [place] [address] [address] [place] [address] Darek Bagley MD [address] [place] [id number] Social History Tobacco Use Types Packs/Day Years Used Date Smoking Tobacco: Never Smokeless Tobacco: Never Comments Unknown Sex and Gender Information Value Date Recorded Sex Assigned at Female 03/14/2020 3:49 PM EST Legal Sex Female 2:59 PM EDT Gender Identity Female 03/14/2020 3:49 PM EST Sexual Orientation Straight 03/14/2020 3: 49 PM EST documented as of this encounter Plan of Treatment Not on file documented as of this encounter Procedures Procedure Name Priority Date/Time Associated Diagnosis Comments LAB SCAN Routine 07/01/2020 documented in this encounter Results * Lab Scan (07/01/2020) us Darek Bagley MD LAB BLOOD ORDERABLES Final Re sult documented in this encounter Visit Diagnoses Not on filedocumented in this encounter Care Teams Porcelain Mixer Relationship Specialty Start Date End Date Darek Bagley MD [address] [place] [address] PCP - General Family Medicine 01/31/20 documented as of this encounter
--- OUTSIDE RECORDS SUMMARY | 2024-10-15 06:30 | XMS_ITS | Encounter Summary ---
Author Organization [facility] Address [facility] [email or web address] [address] [address] Phone Care Team Providers Care Pathology Specialist Name Role Phone Sepideh Silverman MD Primary Care Provider [phone] Encounter Details Date Type Department Care Team (Late st Contact Info) Description 06/14/2022 Transcribe Orders Virtual Department [address] [place] [address] Sepideh Silverman MD [address] [place] [phone] [email or web address] Pelvic and perineal pain (Primary Dx) Social History Tobacco Use Types Packs/Day Years Used Date Smoking Tobacco: Never Smokeless Tobacco: Never Alcohol Use Standard Drinks/Week Comments Not Currently 0 (1 standard drink = 0.6 oz pur e alcohol) Education Answer Date Recorded Are you interested in more education? Not on daylin e 06/18/2022 Are you concerned about learning? Not on file 06/18/2022 No 06/18/2022 No 06/18/2022 Intimate Partner Violence Answer Date R ecorded [...] [facility] [address] [place] [address] Danita Vides MD [address] [id number] documented as of this encounter Visit Diagnoses Diagnosis Pelvic and perineal pain- Primary documented in this encounter Care Teams Pathology Specialist Relationship Specialty Start Date End Date Sepideh Silverman MD [address] [place] [phone] [email or web address] PCP - General Family Medicine 11/24/20 documented as of this encounter Additional Source Comments The information contained in this document represents components of the legal health record. It is not the complete legal health record.[facility]
--- OUTSIDE RECORDS SUMMARY | 2024-10-15 06:30 | XMS_ITS | Clinical Summary ---
Author Organization [facility] Address [address] [place] [id number] Care Team Providers Care Immigration Case Manager Name Role Phone Darek Bagley MD Primary Care Provider [phone] Allergies No known active allergies Medications multivitamin with minerals tablet Take 1 tablet by mouth 1 (one) time each day. Active mecobalamin, vitamin B12, 1,000 mcg tablet,chewable Chew 1 Dose. Active Active Problems Problem Noted Date Diagnosed Date Cotton wool spots 03/10/2020 Visual field defect of right eye 03/10/2020 Pituitary microadenoma 03/10/2020 Anxiety 03/10/2020 Elevated antinuclear antibody (SUDHIR) level 2020 Resolved Problems Problem Noted Date Diagnosed Date Resolved Date Suspected COVID-19 virus infection 08/30/2020 05/21/2021 Immunizations Immunization Administration Dates Next Due INFLUENZA, SEASONAL, INJECTABLE 11/21/2019 Moderna SARS-CoV-2 Vaccination 06/23/2020,2020 Family History Medical History Relation Name Comments Diabetes Mother's Brother Hypertension Mother's Brother Diabetes Mother's Sister Hypertension Mother's Sister Relation Name Status Comments Mother's Brother Mother's Sister Social History Tobacco Use Types Packs/Day Years Used Date Smoking Tobacco: Never Smokeless Tobacco: Never Comments No Sex and Gender Information Value Date Recorded Sex Assigned at Not on file Legal Sex Female 2:29 PM EST Gender Identity Not on file Sexual Orientation Not on file Last Filed Vital Signs Vital Sign Reading Time Taken Comments Blood Pressure 132/83 08/30/2020 3:45 PM EDT Pulse 75 08/30/2020 3:45 PM EDT Temperature 37 C (98.6 F) 08/30/2020 3:45 PM EDT Respiratory Rate 16 08/30/2020 3:45 PM EDT Oxygen Saturation 100% 08/30/2020 3:45 PM EDT Inhaled Oxygen Concentration - - Weight 56.5 kg (124 lb 9 oz) 08/30/2020 3:45 PM EDT Height 162.6 cm (5' 4 ) 08/30/2020 3:45 PM EDT Body Mass Index 21.38 08/30/2020 3:45 PM EDT Plan of Treatment Scheduled Orders Name Type Priority Associated Diagnoses Orde r Schedule Basic metabolic panel Lab Routine Pituitary microadenoma ([facility]) 1 Occurrences starting 07/07/2020 until 07/07/2021 Prolactin, Total and Monomeric (Q) Lab Routine Pituitary microadenoma with hyperprolactinemia ([facility]) 1 Occurrences starting 04/01/2020 until 04/01/2021 Prolactin, Dilution Study (Q) Lab Routine Pituitary microadenoma with hyperprolactinemia ([facility]) 1 Occurrences starting 04/01/2020 until 04/01/2021 Prolactin Lab Routine Pituitary microadenoma with hyperprolactinemia ([facility]) 1 Occurrences starting 03/27/2020 until 03/27/2021 Prolactin, Total and Monomeric Lab Routine Pituitary microadenoma with hyperprolactinemia ([facility]) 1 Occurrences starting 03/27/2020 until 03/27/2021 Prolactin, Dilution Study (Q) Lab Routine Pituitary microadenoma with hyperprolactinemia ([facility]) 1 Occurrences starting 03/27/2020 until 03/27/2021 ACTH Lab Routine Pituitary microadenoma with hyperprolactinemia ([facility]) 1 Occurrences starting 03/27/2020 until 03/27/2021 Cortisol Lab Routine Pituitary microadenoma with hyperprolactinemia ([facility]) 1 Occurrences starting 03/27/2020 until 03/27/2021 Insulin-like growth factor Lab Routine Pituitary microadenoma with hyperprolactinemia ([facility]) 1 Occurrences starting 03/27/2020 until 03/27/2021 TSH Lab Routine Pituitary microadenoma with hyperprolactinemia (CMS/HCC) Anxiety 1 Occurrences starting 03/27/2020 until 03/27/2021 T4, free Lab Routine Pituitary microadenoma with hyperprolactinemia (CMS/HCC) Anxiety 1 Occurrences starting 03/27/2020 until 03/27/2021 T3 Lab Routine Pituitary microadenoma with hyperprolactinemia (CMS/HCC) Anxiety 1 Occurrences starting 03/27/2020 until 03/27/2021 Scheduled Referrals Name Type Priority Associated Diagnoses Orde r Schedule Ambulatory referral to Endocrinology Outpatient Referral Routine Pituitary microadenoma (CMS/HCC) Expected: 01/27/2020, Expires: 01/26/2021 Ambulatory referral to Rheumatology Outpatient Referral Routine Elevated antinuclear antibody (SUDHIR) level Expected: 01/07/2020, Expires: 01/06/2021 Health Maintenance Due Date Last Done Comments Annual Physical Exam 05/06/2007 Tdap and Td Vaccines Adult 2008 Pap Smear 2010 Cervical Cancer Screening 05/06/2019 HPV/Cotest 05/06/2019 COVID-19 Vaccine (3 - 2023-2 5 season) 2023 06/23/2020, 05/26/2020 Influenza Vaccine (#1) 2024 11/21/2019 HIB Vaccines Aged Out No longer eligi ble based on patient's age to complete this topic HPV Vaccines (No Doses Required) Completed Hepatitis A Vaccines Aged Out No long er eligible based on patient's age to complete this topic IPV Vaccines Aged Out No longer eligi ble based on patient's age to complete this topic Meningococcal Vaccine Aged Out No salo luzmaria eligible based on patient's age to complete this topic Pneumococcal Vaccine: Peds ( 0 to 5 Yrs) and At-Risk Pts (6 to 49 Yrs) Aged Out No longer eligible b ased on patient's age to complete this topic RSV <20 Months Aged Out No longer marika gible based on patient's age to complete this topic Insurance [facility] Care Teams Immigration Case Manager Relationship Specialty Start Date End Date Darek Bagley MD [address] [place] [phone] PCP - General Pediatrics 10/03/19
--- OUTSIDE RECORDS SUMMARY | 2024-10-15 06:30 | XMS_ITS | Encounter Summary ---
Author Organization [facility] Address [address] [facility] [address] [place] [phone] Phone Care Team Providers Care Security Auditor Name Role Phone Sepideh Silverman MD Primary Care Provider [phone] Encounter Details Date Type Department Care Team (Late st Contact Info) Description 09/16/2022 Transcribe Orders Virtual Department [address] [place] [address] Gavino Florence MD [address] [place] [phone] [email or web address] Disorder of pituitary gland, unspecified (Primary Dx) Social History Tobacco Use Types [...] [facility] [address] [place] [address] Danita Vides MD [address] [address] [email or web address] documented as of this encounter Visit Diagnoses Diagnosis Disorder of pituitary gland, unspecified- Primary documented in this encounter Care Teams Security Auditor Relationship Specialty Start Date End Date Sepideh Silverman MD [address] [place] [phone] [email or web address] PCP - General Family Medicine 11/24/20 documented as of this encounter Additional Source Comments The information contained in this document represents components of the legal health record. It is not the complete legal health record.[facility]
== END 2024-10-15 06:25 | disposition home or self-care (01) ==
LOC: HO.UMASIMG 06:24
PROVIDERS: Visit Provider Family Medicine
DX: N92.0 Excessive and frequent menstruation with regular cycle (principal); R22.42 Localized swelling, mass and lump, left lower limb
CPT/HCPCS: 76882

== ENCOUNTER → 2024-10-15 13:30 | Outpatient (BNV) | payer OTHER, SELFPAY | PROVIDERS: Visit Provider Radiology Diagnostic Radiology | DX: R22.42 Localized swelling, mass and lump, left lower limb (principal) | CPT/HCPCS: 76882 ==